=== PATIENT | male | born 1955 | race Caucasian/White ===

== ENCOUNTER 2016-12-28 20:57 | Emergency (ER) | payer OTHER ==
--- NOTE | 2016-12-28 21:23 | ED AMS/SEIZURE/WEAK/DIZZY ---
History of Present Illness General Chief Complaint: Dizziness Stated Complaint: DIZZINESS SINCE THIS AM Source: patient Exam Limitations: no limitations Vital Signs & Intake/Output Vital Signs & Intake/Output Vital Signs Date Time Temp Pulse Resp B/P Pulse O2 O2 Flow FiO2 Ox Delivery Rate 12/28 2222 98.0 70 18 145/81 96 Room Air 12/28 2142 97.9 20 12/28 2105 77 24 146/86 98 Room Air ED Intake and Output 12/29 0000 12/28 1200 Intake Total 120 Output Total Balance 120 Intake, Oral 120 Patient 170 lb Weight Allergies Coded Allergies: NO KNOWN ALLERGIES (06/20/12) Reconcile Medications Meclizine HCl 25 MG TABLET 1 TAB PO TIDPRN PRN VERTIGO Triage Note: PER PT DIZZYNESS WITH RISING THIS AM, CO VERTIGO THEN RESOLVED AFTER A BIT. WENT TO GYM, FELT PULSE IN EARS AND LEANING FORWARD PRESSURE TO EARS, WHEN LAYING DOWN VERTIGO COMES BACK REPORTS FEELING "OFF" PT REPORTS HAVING A ROCK BEHIND RT KNEE USED HEAT AND IT WENT AWAY. Triage Nurses Notes Reviewed? yes Onset: Abrupt Duration: day(s): Timing: single episode today Injury Environment: neighbor's Severity: mild, moderate Modifying Factors: Worsens With: movement. Associated Symptoms: nausea - mild HPI: 61-year-old gentleman in prior good health presents with vertigo. He states that when he awoke, "I looked up my eyes and told to my head and I considered became dizzy. I felt like the world was spinning around my head." He notes that the symptoms continued throughout the day. He never had any weakness, lightheadedness, syncopal symptoms. He states he was able to go to the gym without problem but he noted occasional vertigo-type symptoms when he moves his head in certain positions. This evening when he lay flat, his vertigo returned again. He presents emergency department for further evaluation. He states that he is feeling better but still feels somewhat vertiginous when he moves his head back and forth rapidly. Past History Travel History Traveled to [place] past 21 day No Medical History Any Pertinent Medical History? see below for history Neurological: NONE EENT: NONE Cardiovascular: NONE Respiratory: NONE Gastrointestinal: NONE Hepatic: NONE Renal: NONE Musculoskeletal: NONE Psychiatric: NONE Endocrine: NONE Tetanus Vaccine: 06/20/12 Surgical History Surgical History: none Psychosocial History What is your primary language Maltese Tobacco Use: Current Daily Use Daily Tobacco Use Amount/Type: => 5 Cigarettes daily Family History Hx Contributory? No Review of Systems Review of Systems Constitutional: Reports: no symptoms. EENTM: Reports: no symptoms. Respiratory: Reports: no symptoms. Cardiovascular: Reports: no symptoms. GI: Reports: no symptoms. Genitourinary: Reports: no symptoms. Musculoskeletal: Reports: no symptoms. Skin: Reports: no symptoms. Neurological/Psychological: Reports: no symptoms. Hematologic/Endocrine: Reports: no symptoms. Immunologic/Allergic: Reports: no symptoms. All Other Systems: Reviewed and Negative Physical Exam Physical Exam General Appearance: well developed/nourished, no apparent distress, alert, awake , comfortable Head: atraumatic, normal appearance Eyes: Bilateral: normal appearance, PERRL, EOMI. Ears, Nose, Throat: normal pharynx, normal ENT inspection Neck: normal inspection, supple, full range of motion Respiratory: normal breath sounds, chest non-tender, no respiratory distress, quiet respiration, lungs clear Cardiovascular: regular rate/rhythm Gastrointestinal: normal bowel sounds, soft, non-tender, no organomegaly Back: normal inspection, normal range of motion Extremities: normal range of motion Neurologic/Psych: no motor/sensory deficits, awake, alert, oriented x 3 Skin: intact, normal color, warm/dry Core Measures ACS in differential dx? No CVA/TIA Diagnosis: No Severe Sepsis Present: No Septic Shock Present: No Progress Differential Diagnosis: vertigo versus dehydration versus lightheadedness versus other Plan of Care: Orders Procedure Date/time Status TROPONIN LEVEL 12/28 2113 Complete COMPREHENSIVE METABOLIC PANEL 12/28 2113 Complete CBC WITHOUT DIFFERENTIAL 12/28 2113 Complete EKG 12/29 2103 Active Laboratory Tests 12/28/162134: Anion Gap 11, Estimated GFR 56 L, BUN/Creatinine Ratio 12.3, Glucose 103 H, Calcium 10.2, Total Bilirubin 0.5, AST 71 H, ALT 39, Alkaline Phosphatase 84, Troponin I < 0.01, Total Protein 7.5, Albumin 4.5, Globulin 3.0, Albumin/ Globulin Ratio 1.5, CBC w Diff NO MAN DIFF REQ, RBC 4.93, MCV 86.9, MCH 28.4, RDW 14.1, MPV 7.4, Gran % 70.6, Lymphocytes % 21.1, Monocytes % 7.1, Eosinophils % 0.7, Basophils % 0.5, Absolute Granulocytes 6.5, Absolute Lymphocytes 1.9, Absolute Monocytes 0.7 H, Absolute Eosinophils 0.1, Absolute Basophils 0, PUBS MCHC 32.7 L Diagnostic Imaging: Viewed by Me: CT Scan. Discussed w/RAD: CT Scan. Radiology Impression: head ct... no pathology Initial ED EKG: normal axis, normal intervals, normal p-waves, normal QRS complex, normal sinus rhythm Comments: PATIENT: JULIO CARTAGENA PRESENT AGE: 61 PATIENT ACCOUNT NO: [id number] : 56 LOCATION: [facility] ORDERING PHYSICIAN: REYNA OVIEDO MD SERVICE DATE: 12/28/16 EXAM TYPE: CAT - CT HEAD WO IV CONTRAST EXAMINATION: CT HEAD WITHOUT CONTRAST CLINICAL INFORMATION: Vertigo. COMPARISON: None TECHNIQUE: Contiguous axial imaging was performed from the skull base to vertex without intravenous administration of contrast. DLP: 601 mGy-cm FINDINGS: There is no evidence of acute intracranial hemorrhage or territorial infarction. No abnormal mass effect or midline shift is seen. Blanton to white matter differentiation is well preserved. No extra-axial fluid collections are identified. The ventricles are normal in size. There is no abnormal attenuation within the brain parenchyma. The osseous structures and soft tissues are normal. The mastoid air cells are well aerated. There is retention cyst demonstrated in the left maxillary sinus. IMPRESSION: No acute intracranial pathology. DICTATED BY: HEMANTH GRIFFITHS MD DATE/TIME DICTATED:12/28/162252 TAX DIRECTOR:CLARY DATE/TIME TRANSCRIBED:12/28/162252 CONFIDENTIAL, DO NOT COPY WITHOUT APPROPRIATE AUTHORIZATION. Departure Departure Disposition: HOME OR SELF CARE Condition: Stable Clinical Impression Primary Impression: Vertigo Referrals: OSMAR JORDAN,KIKE Younger (PCP/Family) Departure Forms: Customer Survey General Discharge Information Prescriptions: Current Visit Scripts Meclizine HCl 1 TAB PO TIDPRN PRN VERTIGO #30 TAB Ref 1
[2016-12-28 21:44] LABS: ABSOLUTE BASOPHIL COUNT 0 /CUMM (0.0-0.2); ABSOLUTE EOSINOPHIL COUNT 0.1 /CUMM (0.0-0.7); ABSOLUTE GRANULOCYTE CT 6.5 /CUMM (1.4-6.5); ABSOLUTE LYMPH COUNT 1.9 /CUMM (1.2-3.4); ABSOLUTE MONOCYTE COUNT 0.7 /CUMM (0.10-0.60); BASOPHIL % 0.5 % (0.0-2.0); EOSINOPHIL % 0.7 % (0-5); GRANULOCYTE % 70.6 % (42.2-75.2); HEMATOCRIT 42.8 % (42-52); MEAN CORPUSCULAR HGB 28.4 PG (27.0-31.0); MEAN CORPUSCULAR HGB CONC 32.7 G/DL (33.0-37.0); MEAN CORPUSCULAR VOLUME 86.9 FL (80.0-94.0); MEAN PLATELET VOLUME 7.4 FL (7.4-10.4); PLATELET COUNT 258 /CUMM (130-400); RBC DISTRIBUTION WIDTH 14.1 % (11.5-14.5); RED BLOOD CELL CT 4.93 /CUMM (4.70-6.10); WHITE BLOOD CELL COUNT 9.2 /CUMM (4.8-10.8)
[2016-12-28 22:22] VITALS: BP 145/81
[2016-12-28] MEDS ORDERED: MECLIZINE HCL25 MG PO (22:27)
--- NOTE | 2016-12-28 23:03 | CT SCAN REPORT ---
EXAMINATION: CT HEAD WITHOUT CONTRAST CLINICAL INFORMATION: Vertigo. COMPARISON: None TECHNIQUE: Contiguous axial imaging was performed from the skull base to vertex without intravenous administration of contrast. DLP: 601 mGy-cm FINDINGS: There is no evidence of acute intracranial hemorrhage or territorial infarction. No abnormal mass effect or midline shift is seen. Blanton to white matter differentiation is well preserved. No extra-axial fluid collections are identified. The ventricles are normal in size. There is no abnormal attenuation within the brain parenchyma. The osseous structures and soft tissues are normal. The mastoid air cells are well aerated. There is retention cyst demonstrated in the left maxillary sinus. IMPRESSION: No acute intracranial pathology.
== END 2016-12-28 23:44 ==
LOC: ERH 20:57
PROVIDERS: Pediatrics
DX: R42 Dizziness and giddiness (principal)
CPT/HCPCS: 93005; 93010